=== PATIENT | male | born 1970 | race Caucasian/White ===

== ENCOUNTER 2017-03-03 14:11 | Emergency (ER) | payer OTHER ==
[~2017-03-03] VITALS: Ht 180.3 cm; Wt 113.4 kg
== END 2017-03-03 14:35 | disposition home or self-care (01) ==
LOC: ED 14:11
DX: M54.9 Dorsalgia, unspecified (principal); Z00.8 Encounter for other general examination

== ENCOUNTER 2017-05-24 17:09 | Emergency (ER) | payer OTHER ==
[~2017-05-24] VITALS: Ht 180.3 cm; Wt 113.4 kg
[2017-05-24] MEDS ORDERED: IBUPROFEN800 MG PO (17:22)
[2017-05-24] MEDS ORDERED: NEURONTIN100 MG PO (17:22)
[2017-05-24] MEDS ORDERED: CYCLOBENZAPRINE10 MG PO (17:23)
[2017-05-24] MEDS ORDERED: PERCOCET 5-3251 EACH PO (17:33)
== END 2017-05-24 18:10 | disposition home or self-care (01) ==
LOC: ED 17:09
DX: M54.42 Lumbago with sciatica, left side (principal); F17.200 Nicotine dependence, unspecified, uncomplicated; Z90.49 Acquired absence of other specified parts of digestive tract; Z79.899 Other long term (current) drug therapy
CPT/HCPCS: 96372; 99283; J1170